=== PATIENT | male | born 1985 | race Hispanic/Latino ===

== ENCOUNTER 2021-04-29 08:18 | Day surgery (SDC) | payer BC ==
[2021-04-26 10:25] VITALS: BP 115/74
[2021-04-26 10:33] LABS: BASOPHILS % (AUTO) 1.2 % (0.0-5.0); EOSINOPHILS % (AUTO) 5.2 % (0.0-8.0); LYMPHOCYTES % (AUTO) 30.8 % (21.0-51.0); MEAN CORPUSCULAR HEMOGLOBIN 30.3 pg (27.0-33.0); MEAN CORPUSCULAR HGB CONC 33.9 g/dL (32.0-36.0); MEAN CORPUSCULAR VOLUME 89.3 fL (79-99); NEUTROPHILS % (AUTO) 53.3 % (40.0-77.0); PLATELET COUNT (AUTO) 212 K/uL (130-400); RED BLOOD CELL COUNT(AUTO) 5.15 MIL/uL (4.50-6.20); RED CELL DISTRIBUTION WIDTH 12.3 % (11.0-15.5); WHITE BLOOD COUNT (AUTO) 7.3 K/uL (4.8-10.8)
[2021-04-26 10:43] LABS: POTASSIUM 4.7 mmol/L (3.5-5.1)
[2021-04-26] MEDS: CEFAZOLIN SODIUM 1 GM VIAL IVP SCH (12:30)
[~2021-04-29] VITALS: Ht 170.2 cm; Wt 94.4 kg
[2021-04-29] VITALS (13 sets, daily range): BP systolic 115–141; BP diastolic 59–95
[2021-04-29] MEDS ORDERED: LACTATED RINGERS 1000ML 1,000 ML IV ONE (10:39)
[2021-04-29] MEDS ORDERED: LIDOCAINE HCL 1% 20 ML VIAL ONE (14:20)
[2021-04-29] MEDS ORDERED: BUPIVACAINE/PF 0.25% 30ML VIAL IJ ONE (14:20)
[2021-04-29] MEDS ORDERED: ONDANSETRON 4MG INJ ONE (14:23)
[2021-04-29] MEDS ORDERED: LIDOCAINE PF 100MG/5ML (2%) SYRINGE 5ML ONE (14:23)
[2021-04-29] MEDS ORDERED: DEXAMETHASONE SOD PHOSPHATE 4 MG/ML 1ML VIAL ONE (14:23)
[2021-04-29] MEDS ORDERED: PROPOFOL 10 MG/ML 20ML VIAL IV ONE (14:24)
[2021-04-29] MEDS ORDERED: FENTANYL CITRATE PF 50 MCG/1 ML 5ML AMP IV ONE (14:24)
[2021-04-29] MEDS ORDERED: ROCURONIUM 10MG/1ML SYR 10 MG/ML ML ONE ×2 (14:24→15:28)
[2021-04-29] MEDS ORDERED: MIDAZOLAM HCL 1 MG/ML 2ML VIAL ONE (14:24)
[2021-04-29] MEDS: CEFAZOLIN SODIUM 1 GM VIAL IVP SCH (14:57)
[2021-04-29] MEDS ORDERED: ROPIVACAINE 0.5% 5MG/ML 30ML IJ ONE (15:29)
== END 2021-04-29 19:00 | disposition home or self-care (01) ==
LOC: DAH 08:18
PROVIDERS: ATTEND Student in an Organized Health Care Education/Training Program
DX: K80.10 Calculus of gallbladder with chronic cholecystitis without obstruction (principal); Z20.822 Contact with and (suspected) exposure to COVID-19; Z82.49 Family history of ischemic heart disease and other diseases of the circulatory system; Z98.890 Other specified postprocedural states; Z79.899 Other long term (current) drug therapy
CPT/HCPCS: 36415; 47562; 80048; 85025; 87635; A4215; A4221; A4222; A4223; A4600; A4649 ×2; A4663; A4930; A6206; C1769 ×3; C9803; J0690; J1100; J2001; J2250; J2405; J2704; J2795; J3010; J3490; J7030; J7120